=== PATIENT | male | born 1960 | race Caucasian/White ===

== ENCOUNTER 2017-05-27 01:16 | Inpatient (IN) | payer OTHER ==
[~2017-05-27] VITALS: Ht 172.7 cm; Wt 108.9 kg
[~2017-05-27 01:16] MED LIST: ASPIRIN EC81 M1 PO; ATORVASTATIN CA20 M1 PO; FLUTICASONE PRO16 GM NASB; GABAPENTIN100 M2 PO; GABAPENTIN300 M2 PO; GLYBURIDE2.5 M1 PO; LOSARTAN POTAS100 M1 PO; LOSARTAN POTASS50 M1 PO; MELOXICAM7.5 M1 PO; METFORMIN HCL500 M3 PO
--- NOTE | 2017-05-27 10:10 | Operative Report ---
Operative/Inv Procedure Report Surgery Date: 05/27/17 Name of Procedure: Left total hip arthroplasty Pre-Operative Diagnosis: Left hip osteoarthritis primary Post-Operative Diagnosis: Same with final pathology pending Estimated Blood Loss: 50ml to 100ml Surgeon/[employer]: CEASAR MAYS,Olegario FISHMAN Anesthesia: general endotracheal tube Implants: Secure fit Marilia femoral stem size 7 with a 127 neck angle 54 acetabulum 36-2.5 Biolox femoral head Drains: None none Specimens: Femoral head, acetabular reamings, lining of acetabular cyst Microbiology: Urine Complications: None Condition: Stable Operative Indication: Patient is a 56-year-old man with a long history of gradually worsening left hip symptoms. X-rays reveal end-stage osteoarthritis and degenerative subluxation of the left hip. Due to ongoing symptoms that interfere with normal activities of daily living and lack of improvement with normal conservative measures, patient wished to proceed with total hip arthroplasty. Risks, benefits and expectations of the surgical procedure were discussed which included but were not limited to persistent hip pain, need for subsequent surgery, infection, DVT, injury to blood vessel or nerve, anesthesia risks, leg length discrepancy, dislocation. Operative/Procedure Note Note: Patient was brought to the operating room and transferred to the operating room table. Once under appropriate anesthesia the patient was placed into a right lateral decubitus position with left side up. All bony prominences were well- padded. Preoperative IV antibiotics were given prophylactically. Left lower extremity was prepped and draped in standard fashion. Standard lateral incision was made for anticipated superior approach to the hip. The incision was taken down sharply to the underlying fascia. The fascia was incised in line with the skin incision. Of note there was very atrophied radius adrienne muscle area the hip was then internally rotated. There was an overhanging greater trochanter. Of note the piriformis was also atrophic. Retractor was placed in the interval between the gluteus minimus tendon and the superior capsule. Capsule was incised again the capsules very thinned out along the most posterior superior aspect with a various thinned out area. This was excised. Inferior and superior portions of the posterior capsule were excised as well. Hip was dislocated. Measurements were taken femoral neck cut was made based on preoperative templating and intraoperative measurements. Patient did have a short/leg length discrepancy on the left. After the femoral neck cut was made I then was able to assist exposed the acetabulum with appropriate direct superior retractors. Remnants of the degenerative labral tissues were excised. All soft tissues were removed from the acetabular fossa. Reaming started with a size 46 and ending with a size 53 for anticipated insertion of a size 54 acetabular cup. Size 52 to determine and to confirm circumferential reaming. I was satisfied with this. I then removed all instruments from the acetabular fossa. Copious irrigation followed. I then impacted the definitive size 54 acetabular shell with the appropriate anteversion and abduction based on preoperative templating, anatomic landmarks and the [place] tower. I was satisfied with position. I used the direct impact her as well. I was satisfied with the position. Copious irrigation followed and then I used the drill followed by the measuring and insertion of 2 6.5 mm cancellus screws in the safe zone. The definitive liner to accept a 36 mm femoral head was impacted in place and the locking mechanism was confirmed. I then placed a lap sponge in the acetabular fossa to protect the polyethylene during preparation of the femur. The femoral elevator was placed underneath the proximal femur and I used a box osteotome to lateralize my insertion site. Hand reamers up to a size 7 were used. Patient did have a slight varus alignment and the proximal femur which was taken into account during preparation the proximal femur. I reamed up to a size 7. I broached up to a size 7. The trial was then done with a 127 neck angle to match patient's anatomy. I restored patient's length with the 36-2.5 femoral head. It was also found to be stable in all planes. No evidence of anterior instability with simultaneous extension and external rotation. No sign of posterior stability with simultaneous internal rotation adduction and flexion to greater than 90. I then removed all trial components. Copious irrigation of the femoral canal followed. I then impacted the definitive size 7 secure fit femoral stem and appropriate version. Excellent scratch fit. I then dried the trunnion and then place a definitive 36-2.[address]. The locking mechanism was confirmed. I reduced the hip. Again the hip was found to be stable in all planes. After copious irrigation and copious irrigation followed every level of closure. The fascia was closed with interrupted #1 Vicryl sutures. Subcutaneous tissues closed in 2 layers with 2-0 Vicryl and skin was closed with ilir appropriate dressings were applied and patient was awakened and taken to recovery room in good condition. No intraoperative complications. Blood loss was less than 100 mL Discharge Disposition: PACU
--- NOTE | 2017-05-27 10:22 | RADIOLOGY REPORT ---
EXAMINATION: XR HIP, LEFT CLINICAL INFORMATION: Status post left hip replacement. COMPARISON: None TECHNIQUE: Two views of the left hip. FINDINGS: There is total left hip arthroplasty with prosthetic components normal alignment. No fracture seen. Immediate postop ilir are seen along the lateral hip. IMPRESSION: Status post total left hip arthroplasty with prosthetic components in satisfactory alignment. Immediate postop changes are noted.
[2017-05-27 13:00] VITALS: BP 128/96; BP 138/88
[2017-05-27 14:32] VITALS: BP 160/90
--- NOTE | 2017-05-27 15:01 | PN- Orthopedic ---
Subjective Subjective: Post op check: patient received on general surgical floor in no distress without complaints. He denies chest pain, shortness of breath and difficulty breathing. He denies nausea and vomitting. He has colunga catheter in place. He has yet to ambulate. Objective Vital Signs and I&Os Vital Signs Date Time Temp Pulse Resp B/P B/P Pulse O2 O2 Flow FiO2 Mean Ox Delivery Rate 05/27 1432 98.0 90 20 160/90 97 Nasal 3.0L Cannula 05/27 1300 96 Nasal 4.0L Cannula 05/27 1300 98.1 90 20 138/88 97 Nasal 3.5L Cannula Intake & Output 05/27 1600 05/27 0800 05/27 0000 05/26 1600 05/26 0800 05/26 0000 Intake Total Output Total 450 Balance -450 Output, Urine 450 Patient 240 lb Weight Weight Estimated Measurement Method Physical Exam: General: Alert and oriented x3, no acute distress Cardiac: RRR, s1s2 Pulm: CTA bilaterally ABD: non-tender, non-distended Extremities: Moves all extremities, distal sensaiton intact. Skin warm and well perfused. DP pulses palpable. Bilateral calves soft and non-tender Surgical site: Left hip: Dressing dry and intact, thigh compartment soft, abduction pillow in place Assessment/Plan Assessment/Plan This is a 56 year old male, POD 0, s/p L THR -continue home meds -Follow up am labs -coumadin for dvt ppx to start tonight -OOB with PT, wbat, posterior hip precautions in place -abx for ppx for 24 hours -bowel regimen: Senna, colace -Will d/w Dr. Cook Core Measures/Miscellaneous Venous Thromboembolism VTE Risk Factors: Age > 40, Surgery VTE Contraindications: No Contraindications VTE Diagnosis: No Beta Luis Antonio Is Beta Luis Antonio a Home Med? No Antibiotics Is Patient on Antibiotics? Yes If Yes: prophylaxis
[2017-05-27 16:08] VITALS: BP 144/82
--- NOTE | 2017-05-27 16:15 | NUR ---
LATE ENTRY; ADMISSION NOTE: PT ARRIVED TO FLOOR AT 1330 FROM PACU. PT A&OX3, VSS, AFEBRILE, PT ON 3.5L NC, LS CTA. NO DISTRESS. NO C/O PAIN AT THIS TIME. MCCONNELL IN PLACE DRAINING CLEAR, YELLOW URINE TO GRAVITY. IV FLUIDS INFUSING THROUGH #18 RF PER EMAR. ABD PILLOW IN PLACE. ALPS ON. PT ASKING FOR FOOD-ORDER TAKEN FOR LUNCH. PT UP TO CHAIR WITH PT. DRSG TO L HIP C,D,I. ICE TO L HIP. FALL RISK PRECAUTIONS TAKEN.
[2017-05-27 19:32] VITALS: BP 130/72
[2017-05-27 21:56] VITALS: BP 132/70
[2017-05-28 02:05] VITALS: BP 140/72
[2017-05-28 06:00] VITALS: BP 134/76
--- NOTE | 2017-05-28 08:40 | PN- Orthopedic ---
See Addendum Subjective Subjective: Reports expected incisional discomfort, but reports his longstanding arthritic pain is gone. Out of bed without dizziness. No shortness of breath. No chest pains. Tolerating diet. No nausea/vomiting. Objective Vital Signs and I&Os Vital Signs Date Time Temp Pulse Resp B/P B/P Pulse O2 O2 Flow FiO2 Mean Ox Delivery Rate 05/28 0600 97.8 75 18 134/76 96 Room Air 05/28 0205 98.1 83 18 140/72 96 Room Air 05/27 2156 97.6 86 18 132/70 94 05/27 1932 98.2 67 18 130/72 98 05/27 1703 130/82 05/27 1608 98.0 93 18 144/82 95 05/27 1432 98.0 90 20 160/90 97 Nasal 3.0L Cannula 05/27 1300 96 Nasal 4.0L Cannula 05/27 1300 98.1 90 20 138/88 97 Nasal 3.5L Cannula Intake & Output 05/28 1600 05/28 0800 05/28 0000 05/27 1600 05/27 0800 05/27 0000 Intake Total 750 1055 300 Output Total 350 330 450 Balance 400 725 -150 Intake, IV 600 575 300 Intake, Oral 150 480 Output, Urine 350 330 450 Patient 240 lb Weight Weight Estimated Measurement Method Physical Exam: General - alert & oriented x 3. comfortable. no acute distress. Lungs - clear bilaterally. no w/r/r. Cardiac - s1s2. reg. Abdomen - soft. nontender Extremities - warm bilaterally. left hip dressing c/d/i. no drain. no hematoma. ice pack in place. nvi. calves soft and nontender b/l. hip pillow in place. Current Medications: Current Medications Sig/Colin Start time Last Medication Dose Route Stop Time Status Admin Acetaminophen 650 MG ONCE 05/27 0000 DC PO 05/27 2359 Atorvastatin Calcium 20 MG 1700 05/27 1700 AC 05/27 PO 170 Celecoxib 400 MG ONCE 05/27 0000 DC PO 05/27 2359 Dexamethasone 10 MG ONCE 05/27 0000 DC Sodium Chloride 50 ML IV 05/27 2359 Docusate Sodium 100 MG DAILY NEEDED PRN 05/27 1345 AC PO Gabapentin 300 MG ONCE 05/27 0000 DC PO 05/27 2359 Glyburide 2.5 MG AT BEDTIME 05/27 2200 AC 05/27 PO 2111 Hydromorphone HCl 2 MG .STK-MED ONE 05/27 1107 DC IM 05/27 1108 Insulin Human Regular 0 TIDAC/HS 05/27 1700 AC 05/27 SC 2111 Labetalol HCl 100 MG .STK-MED ONE 05/27 1014 DC IV 05/27 1015 Losartan Potassium 100 MG DAILY 05/27 1000 AC 05/27 PO 1703 Metformin HCl 500 MG 1/2H B/BREAKF/DINNER 05/28 0700 AC 05/28 PO 0632 Metformin HCl 500 MG BID 05/27 1000 DC PO Morphine Sulfate 2 MG Q3P PRN 05/27 1345 AC IV Morphine Sulfate 4 MG Q3P PRN 05/27 1345 AC IV Ondansetron HCl 4 MG Q6P PRN 05/27 1345 AC IV Oxycodone HCl 10 MG ONCE 05/27 0000 DC PO 05/27 2359 Oxycodone/ 1 TAB Q4P PRN 05/27 1345 AC Acetaminophen PO Oxycodone/ 2 TAB Q4P PRN 05/27 1345 AC 05/27 Acetaminophen PO 2112 Patient Medication 1 ED .STK-MED ONE 05/27 1409 DC Teaching ED 05/27 1410 Polyethylene Glycol 17 GM DAILY NEEDED PRN 05/27 1345 AC PO Scopolamine HBr 1 PAT ONCE 05/27 0000 DC TOP 05/27 2359 Senna/Docusate Sodium 2 TAB AT BEDTIME NEED.. 05/27 1345 AC PO Sodium Chloride 1,000 ML .[id number] 05/27 1345 AC 05/27 IV 2312 Vancomycin HCl 1,000 MG ONCE ONE 05/27 1900 DC 05/27 Sodium Chloride 250 ML IV 05/27 1959 1656 Vancomycin HCl 1,500 MG ONCE ONE 05/27 0715 DC Sodium Chloride 250 ML IV 05/27 0844 Warfarin Sodium 5 MG COUMADIN 1700 ONE 05/27 1700 DC 05/27 PO 05/27 1701 1701 Assessment/Plan Assessment/Plan This is a 56 year old male with hx dm and htn is POD#1 s/p L THR tolerating diet. d/c iv fluids. d/c colunga catheter f/u labs coumadin accordingly - dvt ppx continue PT. wbat. total hip precautions. dressing change POD#2 bowel regime ordered d/c planning will d/w Core Measures/Miscellaneous Venous Thromboembolism VTE Risk Factors: Age > 40, Surgery VTE Contraindications: No Contraindications VTE Diagnosis: No Beta Luis Antonio Is Beta Luis Antonio a Home Med? No Antibiotics Is Patient on Antibiotics? Yes If Yes: prophylaxis
[2017-05-28 09:13] LABS: ABSOLUTE BASOPHIL COUNT 0 /CUMM (0.0-0.2); ABSOLUTE EOSINOPHIL COUNT 0 /CUMM (0.0-0.7); ABSOLUTE GRANULOCYTE CT 7.9 /CUMM (1.4-6.5); ABSOLUTE LYMPH COUNT 1.3 /CUMM (1.2-3.4); BASOPHIL % 0.2 % (0.0-2.0); EOSINOPHIL % 0.2 % (0-5); GRANULOCYTE % 77.5 % (42.2-75.2); HEMATOCRIT 35.8 % (42-52); MEAN CORPUSCULAR HGB 32.1 PG (27.0-31.0); MEAN CORPUSCULAR HGB CONC 34.3 G/DL (33.0-37.0); MEAN CORPUSCULAR VOLUME 93.5 FL (80.0-94.0); MEAN PLATELET VOLUME 8.9 FL (7.4-10.4); PLATELET COUNT 168 /CUMM (130-400); RBC DISTRIBUTION WIDTH 13.4 % (11.5-14.5); RED BLOOD CELL CT 3.83 /CUMM (4.70-6.10); WHITE BLOOD CELL COUNT 10.2 /CUMM (4.8-10.8)
[2017-05-28 09:18] LABS: PT 12.4 SEC (9.4-12.5)
[2017-05-28 10:20] VITALS: BP 140/78
[2017-05-28 14:05] VITALS: BP 140/80
[2017-05-28 22:00] VITALS: BP 140/78
[2017-05-28 22:13] VITALS: BP 130/70
[2017-05-29 06:00] VITALS: BP 160/82
--- NOTE | 2017-05-29 07:50 | Patient Discharge Instructions ---
Discharge Instructions General Discharge Information You were seen/treated for: Left hip pain related to unilateral primary osteoarthritis You had these procedures: Left total hip replacement Watch for these problems: Increasing pain despite the use of pain medication. Increasing redness, warmth, or swelling. Drainage of any type from incision. Inability to bear weight on left leg. Persistent nausea and vomitting. Fever greater than 101.5 degrees. Do not soak the wound: Yes No bath, but you may shower: Yes Other wound care: Keep wound clean and dry. If you shower and wound gets wet, pat dry with a clean towel. No ointments of any type on or near incision unless otherwise indicated by Dr. Cook. Special Instructions: Coumadin: The purpose of this medication is to help your body prevent the development of blood clots. The dose of this medication is subject to change on a daily basis and is based on lab work called INR. Your INR will be checked at a minimum of 2 times per week and the results will be given to Dr. Cook. Dr. Cook or his office will give you specific instructions regarding how much coumadin to take. If you have any questions regarding your dose, please contact his office prior to taking. Diet Continue normal diet: Yes Recommended Diet: Regular Activity Full Activity/No Limits: No Activity Self Limited: Yes Pounds, do NOT lift more than: 10 Activity Limited to: Weight bear as tolerated Additional ACTIVITY Info: Posterior hip precautions in place until otherwise indicated by Dr. Cook. Specifically, please avoid the following: *Crossing left leg over right *Bending left leg at the knee and simultaneously internally rotating your leg *Bending at the waist greater than 90 degrees Acute Coronary Syndrome Inclusion Criteria At DC or during hospital stay patient has or had the following: ACS DIAGNOSIS No Discharge Core Measures Meds if any: Prescribed or Continued at Discharge Meds if any: NOT Prescribed or Continued at Discharge Congestive Heart Failure Inclusion Criteria At DC or during hospital stay patient has or had the following: CHF DIAGNOSIS No Discharge Core Measures Meds if any: Prescribed or Continued at Discharge Meds if any: NOT Prescribed or Continued at Discharge Cerebrovascular accident Inclusion Criteria At DC or during hospital stay patient has or had the following: CVA/TIA Diagnosis No Discharge Core Measures Meds if any: Prescribed or Continued at Discharge Meds if any: NOT Prescribed or Continued at Discharge Venous thromboembolism Inclusion Criteria VTE Diagnosis No VTE Type NONE VTE Confirmed by (Test) NONE Discharge Core Measures - Per Current guidelines, there needs to be overlap - treatment for the first 5 days of Warfarin therapy. - If discharged on Warfarin prior to 5 days of - overlap therapy, the patient will need to be - assessed for post discharge needs including - *Post discharge parental anticoagulation - *Warfarin and/or parental anticoagulation education - *Follow up date to check INR post discharge At least 5 days overlap therapy as Inpatient No Meds if any: Prescribed or Continued at Discharge Note: Overlap Therapy is Warfarin and Anticoagulant Meds if any: NOT Prescribed or Continued at Discharge
--- NOTE | 2017-05-29 07:55 | Surgical Discharge Summary ---
Visit Information Visit Dates Admission Date: 05/27/17 Discharge Date: 05/29/2017 History of Present Illness Chief Complaint: Left hip pain related to unilateral primary osteoarthritis Medical History Blood Transfusion Hx: No Neurological: NONE EENT: NONE Cardiovascular: hypertension, hyperlipidemia Respiratory: NONE Gastrointestinal: NONE Hepatic: NONE Renal: NONE Musculoskeletal: rheumatoid arthritis, sciatica Psychiatric: NONE Endocrine: diabetes Blood Disorders: NONE Cancer(s): NONE EDGE RUNNER/Reproductive: NONE History of MRSA: No History of VRE: No History of CDIFF: No Isolation History: Standard Surgical History Pertinent Surgical History: KNEE SURGERY AFTER INJURY Family History Relations & Conditions If Any: MOTHER Relation not specified for: FH: diabetes mellitus Psychosocial History Where Do You Live? Home Who Do You Live With? Spouse Services at Home: None What is Your Primary Language? Belarusian Review of Systems: See H&P Hospital Course Course Attending Physician: CEASAR MAYS,[facility] Primary Care Physician[facility] Course: Bry was admitted to the hospital on 05/27/2017 for an elective left total hip replacement. He tolerated the procedure well and was transferred to a general surgical floor. There, his diet was advanced and tolerated, he voided without difficulty. He was evaluated and treated by physical therapy. At time of hospital discharge, his vital signs were stable and within normal limits, his neurological and vascular status was intact, and his pain was controlled with the use of oral pain medication. Allergies: Coded Allergies: amoxicillin (FLU LIKE SYMPTOMS 06/07/16) Disposition Summary Disposition Principal Diagnosis: Left hip unilateral primary osteoarthritis Additional Diagnosis: None Discharge Disposition: home health services Discharge Instructions General Discharge Information Code Status: Full Code Patient's Diet: Regular, advance as tolerated Patient's Activity: WBAT, posterior hip precautions in place Follow-Up Instructions/Appts: Follow up with Dr. Cook in 2 weeks from date of surgery. Medications at Discharge Discharge Medications: Stop taking the following medications: Aspirin (Ecotrin*) 81 MG TABLET. ORAL DAILY Continue taking these medications: Metformin HCl (Metformin HCl) 500 MG TABLET 1 Tablet ORAL TWICE DAILY Comments: Last Taken:05/29/2017 Time: 06:30 AM Atorvastatin Calcium (Atorvastatin Calcium) 20 MG TABLET 1 Tablet ORAL DAILY Qty = 90 Comments: Last Taken:05/29/17 Time:4:00 PM Glyburide (Glyburide) 2.5 MG TABLET 1 Tablet ORAL NIGHTLY Qty = 30 Comments: Last Taken:05/29/17 Time:08:00 PM Gabapentin (Gabapentin) 300 MG CAPSULE 1 Capsule ORAL TWICE DAILY Comments: NOT GIVEN IN HOSPITAL Losartan Potassium (Losartan Potassium) 100 MG TABLET 1 Tablet ORAL DAILY Comments: Last Taken:05/29/17 Time:09:30 AM Start taking the following new medications: Docusate Sodium (Colace) 100 MG CAPSULE 1 Capsule ORAL TWICE DAILY Qty = 14 No Refills Instructions: DISCONTINUE USE IF YOU DEVELOP LOOSE STOOL OR DIARRHEA Comments: Last Taken:05/29/17 Time:9:30 AM Warfarin Sodium (Coumadin) 5 MG TABLET 1 Tablet ORAL DAILY Qty = 30 No Refills Instructions: dose is subject to change daily, please verify dose with Dr. Cook prior to taking. Comments: NOT TAKEN IN HOSPITAL Oxycodone HCl/Acetaminophen (Percocet 5-325 MG Tablet) 5 MG-325 MG TABLET 1-2 Tablet ORAL Q4-6H as needed for PAIN Qty = 36 No Refills Comments: Last Taken:05/29/17 Time:12:00 PM
[2017-05-29] MEDS ORDERED: PERCOCET 5-3251 EACH PO (07:59)
[2017-05-29] MEDS ORDERED: COLACE100 M1 PO (07:59)
[2017-05-29] MEDS ORDERED: COUMADIN5 M2 PO (07:59)
[2017-05-29 08:28] LABS: ABSOLUTE BASOPHIL COUNT 0 /CUMM (0.0-0.2); ABSOLUTE EOSINOPHIL COUNT 0.2 /CUMM (0.0-0.7); ABSOLUTE GRANULOCYTE CT 7.3 /CUMM (1.4-6.5); ABSOLUTE LYMPH COUNT 1.1 /CUMM (1.2-3.4); ABSOLUTE MONOCYTE COUNT 0.7 /CUMM (0.10-0.60); BASOPHIL % 0.3 % (0.0-2.0); EOSINOPHIL % 1.8 % (0-5); GRANULOCYTE % 78.6 % (42.2-75.2); HEMATOCRIT 33.3 % (42-52); MEAN CORPUSCULAR HGB 31.9 PG (27.0-31.0); MEAN CORPUSCULAR HGB CONC 34.2 G/DL (33.0-37.0); MEAN CORPUSCULAR VOLUME 93.1 FL (80.0-94.0); MEAN PLATELET VOLUME 8.9 FL (7.4-10.4); PLATELET COUNT 146 /CUMM (130-400); PT 16.1 SEC (9.4-12.5); RBC DISTRIBUTION WIDTH 13.4 % (11.5-14.5); RED BLOOD CELL CT 3.58 /CUMM (4.70-6.10); WHITE BLOOD CELL COUNT 9.3 /CUMM (4.8-10.8)
--- NOTE | 2017-05-29 08:29 | PN- Orthopedic ---
Subjective Subjective: No acute overnight events reported. Pain after prolonged rest, improves with motion and percocet. No chest pain, shortness of breath and difficulty breathing. No nausea or vomitting. Has been voiding. Bowel movement pending. Objective Vital Signs and I&Os Vital Signs Date Time Temp Pulse Resp B/P B/P Pulse O2 O2 Flow FiO2 Mean Ox Delivery Rate 05/29 0600 99.8 83 20 160/82 95 Room Air 05/28 2213 98.6 73 20 130/70 94 05/28 2200 99.1 80 20 140/78 98 05/28 1405 98.6 87 20 140/80 96 05/28 1020 98.1 79 20 140/78 96 Intake & Output 05/29 1600 05/29 0800 05/29 0000 05/28 1600 05/28 0800 05/28 0000 Intake Total 2348 098 2596 Output Total 300 350 330 Balance 1375 400 725 Intake, IV 75 600 575 Intake, Oral 1600 150 480 Output, Urine 300 350 330 Physical Exam: General: Alert and oriented x3, no acute distress Cardiac: RRR, s1s2 Pulm: CTA bilaterally all acuña, posterior auscultation Abdomen: Non-tender, non-distended Extremities: NVI bilaterally, bilateral calves soft and non-tender. Surgical site: Left hip. Dressing changed. Skin edges well approximated with ilir intact. No surrounding erythema or edema. No drainage. Assessment/Plan Assessment/Plan This is a 56 year old male, POD 2, s/p L THR, doing well -Continue OOB, WBAT -Daily dry dressing changes -Add senna-s if no bm, continue colace -Continue coumadin for dvt ppx, dose per INR, target INR 2-3 -Continue current pain regimen -Continue diet as tolerated -Possible discharge today vs tomorrow, dispo planning home with services -Will d/w Dr. Cook Core Measures/Miscellaneous Venous Thromboembolism VTE Risk Factors: Age > 40, Surgery VTE Contraindications: No Contraindications VTE Diagnosis: No Beta Luis Antonio Is Beta Luis Antonio a Home Med? No Antibiotics Is Patient on Antibiotics? Yes If Yes: prophylaxis
[2017-05-29 09:24] VITALS: BP 110/58
== END 2017-05-29 14:41 | disposition home health service (06) | DRG 301 ==
LOC: SDA 01:16 → ENRESERV 10:56 → ENTRNSPT 11:51 → EDTRNSPTSTS 12:16 → EDTRNSPT 12:16 → 2NA 12:22 → CMPTRNSPT 12:41 → ENPENDDIS 05-29 11:47 → 2NA 05-29 14:41
PROVIDERS: Physician Assistant; Physician Assistant Surgical; ADMIT Orthopaedic Surgery
PROC: 0SRB04A Replacement of Left Hip Joint with Ceramic on Polyethylene Synthetic Substitute, Uncemented, Open Approach (ICD-10-PCS; principal; 2017-05-27)
DX: M16.12 Unilateral primary osteoarthritis, left hip (principal); M25.752 Osteophyte, left hip; I10 Essential (primary) hypertension; E78.5 Hyperlipidemia, unspecified; M06.9 Rheumatoid arthritis, unspecified; M54.30 Sciatica, unspecified side; E11.9 Type 2 diabetes mellitus without complications; Z79.84 Long term (current) use of oral hypoglycemic drugs; I45.10 Unspecified right bundle-branch block; Z95.0 Presence of cardiac pacemaker
CPT/HCPCS: 2NAP; 36415; 73501; 82436; 87086; 88304; 97110-GO; 97112-GO; 97116-GO; 97161-GP; 97165-GO; 97530-GO; J0131; J0690; J1100; J1815; J2405; J3370; J3490; J7040